=== PATIENT | male | born 1950 | race Caucasian/White ===

== ENCOUNTER 2022-09-26 20:07 | Emergency (ER) | payer MEDICARE, BC | END 2022-09-26 22:16 | disposition home or self-care (01) | LOC: CSHERS 20:07 | DX: M79.605 Pain in left leg (principal); I10 Essential (primary) hypertension; E10.9 Type 1 diabetes mellitus without complications; W22.8XXA Striking against or struck by other objects, initial encounter; Z79.4 Long term (current) use of insulin; Z79.899 Other long term (current) drug therapy ==

== ENCOUNTER 2022-11-13 08:33 | Inpatient (IN) | payer MEDICARE, BC ==
[2022-11-13] MEDS ORDERED: Iopamidol 300 61% 100 ML VIAL FS ONE (09:11)
[2022-11-13 09:29] LABS: #Basophils 0.1 10x3/uL (0.0-0.2); #Eosinphils 0.1 10x3/uL (0.0-0.5); #Monocytes 0.4 10x3/uL (0.0-1.1); #Neutrophils 8.4 10x3/uL (1.5-8.4); %Basophils 0.7 % (0.0-2.0); %Eosinophils 0.5 % (0.0-6.0); %Lymphocytes 9.6 % (18.0-47.0); %Monocytes 3.6 % (0.0-10.0); %Neutrophils 85.1 % (40.0-75.0); Hemoglobin 15.3 g/dL (13.5-17.5); Mean Corpuscular HGB CONC 32.6 g/dL (32.0-36.0); Mean Corpuscular Hemoglobin 29.1 pg (27.0-33.0); Mean Corpuscular Volume 89.2 fl (81.2-95.1); Platelet Count 258 10x3/uL (150-450); RBC Distribution Width 11.9 % (11.5-14.5); Red Blood Cell (RBC) Count 5.26 10x6/uL (4.32-5.72); White Blood Cell (WBC) Count 9.9 10x3/uL (3.5-10.5)
[2022-11-13] MEDS ORDERED: Ondansetron PF 4 MG/2 ML Vial ONE (09:38)
[2022-11-13 09:55] LABS: ALT (SGPT) 11 U/L (8-55); AST (SGOT) 19 U/L (5-34); Alkaline Phosphatase 154 U/L (40-110); Anion Gap 30 mmol/L (10-20); BUN (Urea Nitrogen) 24 mg/dL (8.4-25.7); Bilirubin, Total 0.9 mg/dL (0.2-1.2); Calc. Creatinine Clearance 0 mL/min (70-130); Calcium 9.8 mg/dL (7.8-10.44); Carbon Dioxide 17 mmol/L (23-31); Chloride 95 mmol/L (98-107); Estimated GFR 41; Globulin 3.3 g/dL (2.4-3.5); Glucose 359 mg/dL (83-110); Lipase 11 U/L (8-78); Potassium 4.8 mmol/L (3.5-5.1); Protein, Total 7.3 g/dL (5.8-8.1); Sodium 137 mmol/L (136-145)
[2022-11-13 10:34] LABS: Bilirubin Neg (Negative); Blood, Urine Negative (Negative); Clarity Clear (Clear); Glucose, Urine (Dipstick) >=1000 mg/dL (Negative); Ketone, Urine 150 mg/dL (Negative); Leukocyte Negative (Negative); Nitrite Negative (Negative); Protein, Urine (Dipstick) Negative (Neg-Trace); Urobilinogen Normal mg/dL (Less than 2)
[2022-11-13] MEDS ORDERED: INSULIN REGULAR IN 0.9 % NACL 100 UNIT/100 ML BAG ONE (10:43)
[2022-11-13] MEDS ORDERED: Morphine 4 MG/ML VIAL ONE (11:38)
[2022-11-13 12:22] LABS: Actual Bicarbonate (HCO3v) 14.6 mEq/L (22-28); Calcium, Ionized (venous) 1.15 mmol/L (1.16-1.32); Chloride (VBG) 96 mmol/L (98-106); Hematocrit-VBG 45 % (42.0-52.0); Hemoglobin (Hb) 15.2 g/dL (12.6-17.4); Potassium (VBG) 4.31 mmol/L (3.70-5.30); Puncture Site Other Site; RapidComm Collect By CBN; Sodium 135.3 mmol/L (133-146)
[2022-11-13] MEDS ORDERED: Ondansetron PF 4 MG/2 ML Vial IVP PRN (12:47)
[2022-11-13] MEDS ORDERED: Calcium Carbonate 500 MG ChewTAB PO PRN ×2 (12:47→18:28)
[2022-11-13] MEDS ORDERED: Acetaminophen 325 MG TAB PO PRN (12:47)
[2022-11-13] MEDS ORDERED: Ondansetron ODT 4 MG TAB PO PRN (12:47)
[2022-11-13] MEDS ORDERED: Senokot S 8.6-50 MG TAB PO PRN (12:47)
[2022-11-13] MEDS ORDERED: Dextrose 5 %-0.45 % NaCl 1,000 ML IV PRN (12:50)
[2022-11-13] MEDS ORDERED: Dextrose 50% Abboject 50 ML SYRINGE SLOW IVP PRN ×2 (12:50→18:46)
[2022-11-13] MEDS ORDERED: NS 0.9% w/ 20 MEQ KCL 1,000 ML IV PRN (12:50)
[2022-11-13] MEDS ORDERED: D5 1/2 NS w/20 mEq KCL 1,000 ML IV PRN (12:50)
[2022-11-13] MEDS ORDERED: Electrolyte Replacement Protocol 1 EACH IVPB PRN (12:50)
[2022-11-13] MEDS ORDERED: Sodium Chloride 0.9% 1,000 ML IV PRN ×4 (12:50)
[2022-11-13 12:53] LABS: Phosphorus 4.1 mg/dL (2.3-4.7)
[2022-11-13] MEDS ORDERED: Amlodipine 5 MG TAB PO PRN (12:54)
[2022-11-13] MEDS ORDERED: INSULIN REGULAR IN 0.9 % NACL 100 UNIT in Premix Bag 1 BAG IVPB SCH (13:30)
[2022-11-13 13:54] VITALS: BMI 36.6
[2022-11-13] MEDS ORDERED: Magnesium 2 GM/50 ML(in water) 2 GM in Premix Bag 1 BAG IVPB SCH (14:00)
[2022-11-13] MEDS: NS 0.9% w/ 20 MEQ KCL 1,000 ML IV PRN ×2 (14:05→16:01)
[2022-11-13 15:07] LABS: Anion Gap 27 mmol/L (10-20); BUN (Urea Nitrogen) 26 mg/dL (8.4-25.7); Calc. Creatinine Clearance 59 mL/min (70-130); Calcium 8.7 mg/dL (7.8-10.44); Carbon Dioxide 14 mmol/L (23-31); Chloride 100 mmol/L (98-107); Estimated GFR 44; Glucose 218 mg/dL (83-110); Potassium 3.9 mmol/L (3.5-5.1); Sodium 137 mmol/L (136-145)
[2022-11-13 15:15] LABS: Troponin I 0.027 ng/mL (< 0.028)
[2022-11-13 17:03] LABS: Hemoglobin A1c 6.2 % (4.0-6.0)
[2022-11-13] MEDS ORDERED: Mag-Al 1200 mg/1200 mg/30 ML UDCUP PO PRN (18:26)
[2022-11-13] MEDS ORDERED: Dextrose 5% in Water 1,000 ML IV PRN (18:46)
[2022-11-13] MEDS ORDERED: Insulin Regular 300 UNITS/3 ML VIAL SC PRN ×2 (18:46)
[2022-11-13] MEDS: 1/2 NS w/KCL 20 mEq 1,000 ML IV SCH (20:11)
[2022-11-13] MEDS: Heparin 5,000 UNITS/ML VIAL SC SCH (20:11)
[2022-11-13] MEDS: Gabapentin 300 MG CAP PO SCH (20:15)
[2022-11-13] MEDS ORDERED: Pantoprazole 40 MG VIAL IVP SCH (21:00)
[2022-11-14] MEDS: 1/2 NS w/KCL 20 mEq 1,000 ML IV SCH ×2 (01:53→09:30)
[2022-11-14 05:00] LABS: #Basophils 0.1 10x3/uL (0.0-0.2); #Eosinphils 0.1 10x3/uL (0.0-0.5); #Monocytes 0.9 10x3/uL (0.0-1.1); #Neutrophils 8.2 10x3/uL (1.5-8.4); %Basophils 0.4 % (0.0-2.0); %Eosinophils 0.9 % (0.0-6.0); %Lymphocytes 18.8 % (18.0-47.0); %Monocytes 7.7 % (0.0-10.0); %Neutrophils 71.8 % (40.0-75.0); Hemoglobin 13.8 g/dL (13.5-17.5); Mean Corpuscular HGB CONC 33.4 g/dL (32.0-36.0); Mean Corpuscular Hemoglobin 29.2 pg (27.0-33.0); Mean Corpuscular Volume 87.5 fl (81.2-95.1); Mean Platelet Volume 9.5 fl (7.4-10.4); Platelet Count 231 10x3/uL (150-450); RBC Distribution Width 12.2 % (11.5-14.5); Red Blood Cell (RBC) Count 4.72 10x6/uL (4.32-5.72); White Blood Cell (WBC) Count 11.4 10x3/uL (3.5-10.5)
[2022-11-14 05:05] LABS: Lactic Acid 1.5 mmol/L (0.5-2.2)
[2022-11-14 05:13] LABS: ALT (SGPT) 8 U/L (8-55); AST (SGOT) 14 U/L (5-34); Albumin 2.9 g/dL (3.4-4.8); Alkaline Phosphatase 98 U/L (40-110); Anion Gap 13 mmol/L (10-20); BUN (Urea Nitrogen) 22 mg/dL (8.4-25.7); Bilirubin, Total 0.6 mg/dL (0.2-1.2); Calc. Creatinine Clearance 67 mL/min (70-130); Calcium 8.2 mg/dL (7.8-10.44); Carbon Dioxide 24 mmol/L (23-31); Chloride 102 mmol/L (98-107); Estimated GFR 51; Globulin 2.2 g/dL (2.4-3.5); Glucose 73 mg/dL (83-110); Magnesium 2.2 mg/dL (1.6-2.6); Phosphorus 2.9 mg/dL (2.3-4.7); Potassium 4.5 mmol/L (3.5-5.1); Protein, Total 5.1 g/dL (5.8-8.1); Sodium 134 mmol/L (136-145)
[2022-11-14] MEDS: Heparin 5,000 UNITS/ML VIAL SC SCH ×2 (07:44→09:15)
[2022-11-14] MEDS: Gabapentin 300 MG CAP PO SCH (07:44)
[2022-11-14] MEDS: Aspirin 81 mg Enteric Coated Tablet PO SCH ×2 (07:44→07:47)
[2022-11-14] MEDS ORDERED: Clopidogrel Bisulfate 75 MG TAB PO SCH (09:00)
[2022-11-14] MEDS ORDERED: Senokot S 8.6-50 MG TAB PO PRN (10:15)
[2022-11-14 10:26] VITALS: BP 120/83; TEMP 98.4
== END 2022-11-14 10:22 | disposition home or self-care (01) | DRG 919 ==
LOC: CSHERS 08:33 → CSHIMCU 12:59
PROVIDERS: ADMIT Internal Medicine; ATTEND Family Medicine
DX: T85.898A Other specified complication of other internal prosthetic devices, implants and grafts, initial encounter (principal); E10.10 Type 1 diabetes mellitus with ketoacidosis without coma; I50.32 Chronic diastolic (congestive) heart failure; N17.9 Acute kidney failure, unspecified; I13.0 Hypertensive heart and chronic kidney disease with heart failure and stage 1 through stage 4 chronic kidney disease, or unspecified chronic kidney disease; I25.10 Atherosclerotic heart disease of native coronary artery without angina pectoris; N40.0 Benign prostatic hyperplasia without lower urinary tract symptoms; I48.0 Paroxysmal atrial fibrillation; N18.30 Chronic kidney disease, stage 3 unspecified; K21.9 Gastro-esophageal reflux disease without esophagitis; G89.4 Chronic pain syndrome; E10.22 Type 1 diabetes mellitus with diabetic chronic kidney disease; E10.40 Type 1 diabetes mellitus with diabetic neuropathy, unspecified; Y83.8 Other surgical procedures as the cause of abnormal reaction of the patient, or of later complication, without mention of misadventure at the time of the procedure; Z79.899 Other long term (current) drug therapy; Z79.82 Long term (current) use of aspirin; Z95.1 Presence of aortocoronary bypass graft; Z86.73 Personal history of transient ischemic attack (TIA), and cerebral infarction without residual deficits; Z95.5 Presence of coronary angioplasty implant and graft; Z98.890 Other specified postprocedural states; Z89.022 Acquired absence of left finger(s)
CPT/HCPCS: 36415; 36416; 71045; 74177; 80053; 81003; 82010; 82805; 83036; 83605; 83690; 83735; 83880; 83930; 84100; 84484; 85025; 87040; 93005; 93010; 94760; 94762; J1644; J1815; J2270; J2405; J3475; J3480; J7999; Q9967

== ENCOUNTER 2023-03-21 19:40 | Observation (INO) | payer MEDICARE, BC ==
[2023-03-21 21:14] LABS: #Basophils 0.1 10x3/uL (0.0-0.2); #Eosinphils 0.1 10x3/uL (0.0-0.5); #Monocytes 0.6 10x3/uL (0.0-1.1); #Neutrophils 4.4 10x3/uL (1.5-8.4); %Basophils 0.8 % (0.0-2.0); %Eosinophils 1.5 % (0.0-6.0); %Lymphocytes 22.8 % (18.0-47.0); %Monocytes 8.6 % (0.0-10.0); %Neutrophils 66.1 % (40.0-75.0); Hematocrit 41.2 % (38.8-50.0); Hemoglobin 13.7 g/dL (13.5-17.5); Mean Corpuscular HGB CONC 33.3 g/dL (32.0-36.0); Mean Corpuscular Hemoglobin 29.7 pg (27.0-33.0); Mean Corpuscular Volume 89.4 fl (81.2-95.1); Mean Platelet Volume 9.1 fl (7.4-10.4); Platelet Count 230 10x3/uL (150-450); RBC Distribution Width 13.2 % (11.5-14.5); Red Blood Cell (RBC) Count 4.61 10x6/uL (4.32-5.72); White Blood Cell (WBC) Count 6.6 10x3/uL (3.5-10.5)
[2023-03-21 21:22] LABS: Anion Gap 16 mmol/L (10-20); BUN (Urea Nitrogen) 14 mg/dL (8.4-25.7); Calc. Creatinine Clearance 0 mL/min (70-130); Calcium 8.5 mg/dL (7.8-10.44); Carbon Dioxide 22 mmol/L (23-31); Chloride 105 mmol/L (98-107); Estimated GFR 56; Potassium 3.8 mmol/L (3.5-5.1); Sodium 139 mmol/L (136-145)
[2023-03-21 21:29] LABS: Glucose 52 mg/dL (83-110)
[2023-03-21] MEDS ORDERED: Dextrose 50% Abboject 50 ML SYRINGE ONE (21:29)
[2023-03-22] MEDS ORDERED: Nitroglycerin 0.4 MG TAB (25 Tab Bottle) SL PRN (00:59)
[2023-03-22] MEDS ORDERED: Furosemide 20 MG TAB PO SCH (01:15)
[2023-03-22] MEDS ORDERED: Clopidogrel Bisulfate 75 MG TAB PO SCH ×2 (01:30→21:00)
[2023-03-22] MEDS ORDERED: Gabapentin 300 MG CAP PO SCH ×2 (01:30→21:00)
[2023-03-22 04:46] VITALS: BMI 33.5
[2023-03-22 05:43] LABS: Cardiac Risk 2.2 (Less than 4.5); Cholesterol 104 mg/dl (< 200 Desired); HDL Cholesterol 47 mg/dL (>60 Neg Risk); LDL Cholesterol, Calculated 41 mg/dL; Magnesium 2.2 mg/dL (1.6-2.6); Triglycerides 78 mg/dL (Less than 150)
[2023-03-22] MEDS: Furosemide 20 MG TAB PO SCH ×2 (08:30→21:02)
[2023-03-22] MEDS ORDERED: Empagliflozin 25 MG TAB PO SCH (09:00)
[2023-03-22] MEDS ORDERED: Potassium Chloride 20 MEQ TAB PO SCH (13:00)
[2023-03-22 13:08] LABS: Hemoglobin A1c 5.2 % (4.0-6.0)
[2023-03-22 19:41] LABS: Bilirubin Neg (Negative); Blood, Urine Negative (Negative); Clarity Clear (Clear); Glucose, Urine (Dipstick) >=1000 mg/dL (Negative); Ketone, Urine Negative (Negative); Leukocyte Negative (Negative); Nitrite Negative (Negative); Protein, Urine (Dipstick) Negative (Neg-Trace); Urobilinogen Normal mg/dL (Less than 2)
[2023-03-22 20:08] LABS: Bacteria/HPF Rare-Few HPF (None Seen); CAUTI Indications for Culture Alt mental st,lethar; RBC/HPF 0-3 HPF (0-3); Squamous Epithelial None Seen HPF (0-3); WBC/HPF 0-3 HPF (0-3)
[2023-03-22 20:10] LABS: Urine Culture Reflex No No
[2023-03-22] MEDS ORDERED: Atorvastatin Calcium 40 MG TAB PO SCH (21:00)
[2023-03-23] MEDS: Furosemide 20 MG TAB PO SCH (09:09)
[2023-03-23 11:57] VITALS: BP 134/71; TEMP 98.2
[2023-03-27] MEDS ORDERED: TIRZEPATIDE 12.5 MG/0.5 ML SC SCH (09:00)
== END 2023-03-23 14:28 | disposition home or self-care (01) ==
LOC: CSHERS 19:40 → CSHTELE 22:00 → INTOOBSV 22:00
PROVIDERS: ADMIT Family Medicine; ATTEND Nurse Practitioner Acute Care
DX: E10.649 Type 1 diabetes mellitus with hypoglycemia without coma (principal); E10.40 Type 1 diabetes mellitus with diabetic neuropathy, unspecified; I48.0 Paroxysmal atrial fibrillation; I25.10 Atherosclerotic heart disease of native coronary artery without angina pectoris; I11.0 Hypertensive heart disease with heart failure; I50.32 Chronic diastolic (congestive) heart failure; R26.89 Other abnormalities of gait and mobility; E78.5 Hyperlipidemia, unspecified; N40.0 Benign prostatic hyperplasia without lower urinary tract symptoms; Z79.02 Long term (current) use of antithrombotics/antiplatelets; Z79.84 Long term (current) use of oral hypoglycemic drugs; Z79.01 Long term (current) use of anticoagulants; Z79.4 Long term (current) use of insulin; Z79.899 Other long term (current) drug therapy; Z95.1 Presence of aortocoronary bypass graft
CPT/HCPCS: 36415; 36416; 70450; 70551; 80048; 80061; 81001; 83036; 83735; 85025; 93005; 93010; 93880; 96372; 96374; G0378; J1650; J7999

== ENCOUNTER 2025-06-12 10:51 | Outpatient (CLI) | payer MEDICARE ==
[2025-06-12 11:28] LABS: Hematocrit 41.4 % (38.8-50.0); Hemoglobin 13.3 g/dL (13.5-17.5); Mean Corpuscular Hemoglobin 28.7 pg (27.0-33.0); Mean Corpuscular Volume 89.2 fL (81.2-95.1); Platelet Count 170 10x3/uL (150-450); Red Blood Cell (RBC) Count 4.64 10x6/uL (4.32-5.72); White Blood Cell (WBC) Count 4.19 10x3/uL (3.5-10.5)
[2025-06-12 11:47] LABS: Anion Gap 11 mmol/L (10-20); BUN (Urea Nitrogen) 18 mg/dL (8.4-25.7); Calc. Creatinine Clearance 0 mL/min (70-130); Calcium 8.8 mg/dL (7.8-10.44); Carbon Dioxide 27 mmol/L (23-31); Chloride 104 mmol/L (98-107); Glucose 105 mg/dL (83-110); Potassium 4.6 mmol/L (3.5-5.1); Sodium 137 mmol/L (136-145)
== END 2025-06-12 10:52 | disposition home or self-care (01) ==
LOC: CSHLAB 10:51
PROVIDERS: ATTEND Surgery
DX: Z01.812 Encounter for preprocedural laboratory examination (principal); R59.0 Localized enlarged lymph nodes
CPT/HCPCS: 80048; 85027

== ENCOUNTER 2025-06-14 07:03 | Day surgery (SDC) | payer MEDICARE ==
[2025-06-12 11:10] VITALS: BMI 32.9
[2025-06-14] MEDS ORDERED: PROPOFOL 20 ML ONE (08:54)
[2025-06-14] MEDS ORDERED: Lidocaine 1% PF 5 ML VIAL ONE (08:54)
[2025-06-14] MEDS ORDERED: Bupivacaine HCl 0.5%/Epinephrine 1:200,000/PF 30 ml Vial ONE (09:02)
[2025-06-14] MEDS ORDERED: CEFAZOLIN 2 GM VIAL ONE (09:21)
== END 2025-06-14 11:38 | disposition home or self-care (01) ==
LOC: CSHSDC 07:03
PROVIDERS: ATTEND Surgery
PROC: 07B50ZZ Excision of Right Axillary Lymphatic, Open Approach (ICD-10-PCS; principal; 2025-06-14)
DX: C77.3 Secondary and unspecified malignant neoplasm of axilla and upper limb lymph nodes (principal); E11.9 Type 2 diabetes mellitus without complications; I25.10 Atherosclerotic heart disease of native coronary artery without angina pectoris; Z95.5 Presence of coronary angioplasty implant and graft; Z79.85 Long-term (current) use of injectable non-insulin antidiabetic drugs; Z79.84 Long term (current) use of oral hypoglycemic drugs; Z79.4 Long term (current) use of insulin; Z79.02 Long term (current) use of antithrombotics/antiplatelets; Z79.899 Other long term (current) drug therapy
CPT/HCPCS: 38525; J1642; J2704; 88305; 88341; 88342; C1713

== ENCOUNTER 2025-06-27 12:36 | Outpatient (CLI) | payer MEDICARE | END 2025-06-27 12:37 | disposition home or self-care (01) | LOC: CSHMRI 12:36 | PROVIDERS: ATTEND Internal Medicine | DX: C43.8 Malignant melanoma of overlapping sites of skin (principal); Z79.899 Other long term (current) drug therapy; R41.0 Disorientation, unspecified; L29.9 Pruritus, unspecified; Z98.890 Other specified postprocedural states; R91.8 Other nonspecific abnormal finding of lung field | CPT/HCPCS: 70553; 71260; 76376 ==